=== PATIENT | female | born 1935 | race Caucasian/White ===

== ENCOUNTER → 2017-09-09 | Day surgery (SDC) | payer OTHER ==
--- NOTE | 2017-09-10 14:37 | PATH ---
Cytology Non-Gynecological Report Patient Name: NICOLETTE DENNIS [facility]. Rec. #: [id number] /Age/Gender: 1935 (Age: 82) / F Account: [id number] Location: RADIOLOGY Taken: 09/09/2017 Received: 09/09/2017 Reported: 09/10/2017 Physicians: Keena Esteban M.D. Specimen(s) Received THYROID FNA RIGHT ISTHMUS Clinical History Right isthmus nodule, 3.47 x 3.17 x 1.96 cm Final Diagnosis THYROID, ISTHMUS, RIGHT, FINE NEEDLE ASPIRATION: SATISFACTORY FOR EVALUATION. BETHES[place] CLASS II: BENIGN. CYTOLOGIC FINDINGS ARE CONSISTENT WITH A BENIGN FOLLICULAR NODULE. SMALL FOLLICULAR CELLS AND COLLOID PRESENT. Electronically Signed Nicolette Martinez M.D. Gross Description Received are eight direct smears, four of which are air-dried and Diff-Quik stained, and four of which are alcohol fixed and Pap stained. Also received is 20 ml of bloody formalin from which one cellblock is prepared. Received is a 1.5 ml ThyroSeq tube.
== END | disposition home or self-care (01) ==
LOC: JRADIR 09:40
PROVIDERS: ATTEND Surgery
PROC: 0G9H3ZX Drainage of Right Thyroid Gland Lobe, Percutaneous Approach, Diagnostic (ICD-10-PCS; principal; 2017-09-09)
DX: E04.1 Nontoxic single thyroid nodule (principal)
CPT/HCPCS: 76942; 88173; 88305-TC

== ENCOUNTER 2021-06-07 19:04 | Inpatient (IN) | payer OTHER ==
[2021-06-07] MEDS ORDERED: FAMOTIDINE 20 MG/50 ML IVPB 20 MG/50 ML MG IVPB ONE ×2 (20:27→20:36)
[2021-06-07] MEDS ORDERED: ONDANSETRON 4 MG/2 ML VIAL IVPUSH ONE (20:27)
[2021-06-07] MEDS ORDERED: ONDANSETRON 4 MG/2 ML VIAL ONE (20:36)
[2021-06-07 21:05] LABS: BASO % 0.1 % (0-2.0); EOS % 0.9 % (0-4.5); HEMATOCRIT 37.6 % (32.4-45.2); HEMOGLOBIN 12.7 GM/dL (10.7-15.3); LYMPH % 14.8 % (8-40); MCH 30.2 pg (25.7-33.7); MCHC 33.8 g/dl (32.0-36.0); MEAN CELL VOLUME 89.3 fl (80-96); MEAN PLT VOLUME 8.1 fl (7.5-11.1); MONO % 8.1 % (3.8-10.2); NEUT % 76.1 % (42.8-82.8); PLATELET COUNT 146 10^3/uL (134-434); RBC 4.22 M/mm3 (3.60-5.2); RDW 13.4 % (11.6-15.6); WHITE BLOOD COUNT 6.8 K/mm3 (4.0-10.0)
[2021-06-07 21:59] LABS: BLOOD UREA NITROGEN 31.8 mg/dL (7-18); CREATININE 1.2 mg/dL (0.55-1.3)
[2021-06-07 22:00] LABS: ALBUMIN 3.3 g/dl (3.4-5.0); BILIRUBIN,TOTAL 0.7 mg/dL (0.2-1); CALCIUM 9.5 mg/dL (8.5-10.1); TOT PROT 7.2 g/dl (6.4-8.2)
[2021-06-07] MEDS ORDERED: CLINDAMYCIN 600MG PREMIX IVPB 600 MG/50 ML BAG IVPB ONE ×3 (22:21→23:36)
[2021-06-07 22:23] LABS: PH,URINE 5.5 (5.0-8.0); URINE APPEARANCE CLEAR; URINE BILIRUBIN NEGATIVE (NEGATIVE); URINE COLOR YELLOW; URINE GLUCOSE (UA) NEGATIVE (NEGATIVE); URINE KETONE NEGATIVE (NEGATIVE); URINE LEUK ESTERASE NEGATIVE (NEGATIVE); URINE NITRITE NEGATIVE (NEGATIVE); URINE PROTEIN NEGATIVE (NEGATIVE); URINE UROBILINOGEN 0.2 mg/dL (0.2-1.0)
[2021-06-07] MEDS ORDERED: diphenhydrAMINE HCL 25 MG CAPSULE (FP) PO PRN (23:39)
[2021-06-07] MEDS ORDERED: POLYETHYLENE GLYCOL (HEALTHYLAX) 3350 17 GM PACKET PO PRN (23:39)
[2021-06-07] MEDS ORDERED: ACETAMINOPHEN 325 MG TABLET (FP) PO PRN (23:39)
[2021-06-08] MEDS ORDERED: ONDANSETRON 4 MG/2 ML VIAL IVPUSH PRN (03:00)
[2021-06-08 04:09] VITALS: BMI 34.9
[2021-06-08] MEDS: CLINDAMYCIN 600MG PREMIX IVPB 600 MG/50 ML BAG IVPB SCH ×2 (07:48→12:08)
[2021-06-08] MEDS: ENOXAPARIN NA (PORCINE) 40 MG/0.4 ML DISP.SYRIN SQ SCH (09:05)
[2021-06-08] MEDS: FAMOTIDINE 20 MG TABLET PO SCH (09:05)
[2021-06-08] MEDS: ASPIRIN 81 MG CHEWABLE TABLETS PO SCH (09:05)
[2021-06-08] MEDS: LOSARTAN POTASSIUM 50 MG TABLET PO SCH (09:06)
[2021-06-08 09:10] LABS: BASO % 0.3 % (0-2.0); EOS % 1.3 % (0-4.5); HEMATOCRIT 38.2 % (32.4-45.2); HEMOGLOBIN 12.5 GM/dL (10.7-15.3); LYMPH % 20.8 % (8-40); MCH 29.3 pg (25.7-33.7); MCHC 32.7 g/dl (32.0-36.0); MEAN CELL VOLUME 89.7 fl (80-96); MEAN PLT VOLUME 8.5 fl (7.5-11.1); NEUT % 68.6 % (42.8-82.8); PLATELET COUNT 169 10^3/uL (134-434); RBC 4.26 M/mm3 (3.60-5.2); RDW 13.3 % (11.6-15.6); WHITE BLOOD COUNT 5.9 K/mm3 (4.0-10.0)
[2021-06-08 09:19] LABS: INR 1.12 (0.83-1.09); PROTHROMBIN TIME (PATIENT) 12.9 SEC (9.7-13.0)
[2021-06-08 09:22] LABS: ACTIVATED PTT 26.6 SECONDS (25.2-36.5)
[2021-06-08 09:41] LABS: BLOOD UREA NITROGEN 28.3 mg/dL (7-18); CALCIUM 9.4 mg/dL (8.5-10.1); MAGNESIUM 2.2 mg/dL (1.8-2.4)
[2021-06-08 09:47] LABS: CREATININE 1.1 mg/dL (0.55-1.3)
[2021-06-08] MEDS: CEFAZOLIN 1 GM in DEXTROSE 5%-WATER - 1 GM/50 ML IVPB IVPB SCH ×2 (13:07→17:12)
[2021-06-08] MEDS: valACYclovir HCL 500 MG TABLET (FP) PO SCH ×2 (13:07→22:13)
[2021-06-08] MEDS ORDERED: ceFAZolin SODIUM 1 GM VIAL ONE ×2 (13:24→16:45)
[2021-06-08] MEDS ORDERED: DEXTROSE 5%-WATER - 50 ML IVPB ONE (13:25)
[2021-06-08] MEDS: VANCOMYCIN/WATER FOR INJ (PEG) 1,000 MG/200 ML BAG IVPB SCH (13:27)
[2021-06-09] MEDS ORDERED: ceFAZolin SODIUM 1 GM VIAL ONE ×3 (01:28→17:32)
[2021-06-09] MEDS ORDERED: DEXTROSE 5%-WATER - 50 ML IVPB ONE ×3 (01:28→17:32)
[2021-06-09] MEDS: CEFAZOLIN 1 GM in DEXTROSE 5%-WATER - 1 GM/50 ML IVPB IVPB SCH ×3 (01:31→18:53)
[2021-06-09] MEDS: LOSARTAN POTASSIUM 50 MG TABLET PO SCH (10:00)
[2021-06-09] MEDS: valACYclovir HCL 500 MG TABLET (FP) PO SCH ×2 (10:01→21:26)
[2021-06-09] MEDS: ASPIRIN 81 MG CHEWABLE TABLETS PO SCH (10:01)
[2021-06-09] MEDS: ENOXAPARIN NA (PORCINE) 40 MG/0.4 ML DISP.SYRIN SQ SCH (10:01)
[2021-06-09] MEDS: FAMOTIDINE 20 MG TABLET PO SCH (10:01)
[2021-06-09] MEDS: VANCOMYCIN/WATER FOR INJ (PEG) 1,000 MG/200 ML BAG IVPB SCH (12:28)
[2021-06-10] MEDS ORDERED: DEXTROSE 5%-WATER - 50 ML IVPB ONE ×3 (02:06→17:15)
[2021-06-10] MEDS ORDERED: ceFAZolin SODIUM 1 GM VIAL ONE ×3 (02:06→17:15)
[2021-06-10] MEDS: CEFAZOLIN 1 GM in DEXTROSE 5%-WATER - 1 GM/50 ML IVPB IVPB SCH ×3 (02:26→18:47)
[2021-06-10] MEDS: valACYclovir HCL 500 MG TABLET (FP) PO SCH (09:29)
[2021-06-10] MEDS: FAMOTIDINE 20 MG TABLET PO SCH (09:29)
[2021-06-10] MEDS: ASPIRIN 81 MG CHEWABLE TABLETS PO SCH (09:29)
[2021-06-10] MEDS: ENOXAPARIN NA (PORCINE) 40 MG/0.4 ML DISP.SYRIN SQ SCH (09:29)
[2021-06-10] MEDS: LOSARTAN POTASSIUM 50 MG TABLET PO SCH (09:29)
[2021-06-10] MEDS: POLYETHYLENE GLYCOL (HEALTHYLAX) 3350 17 GM PACKET PO SCH (11:27)
[2021-06-10] MEDS: VANCOMYCIN/WATER FOR INJ (PEG) 1,000 MG/200 ML BAG IVPB SCH (13:32)
[2021-06-10] MEDS: DOCUSATE SODIUM 100 MG CAPSULE (FP) PO SCH ×2 (13:32→21:31)
[2021-06-11] MEDS ORDERED: ceFAZolin SODIUM 1 GM VIAL ONE ×2 (02:17→09:26)
[2021-06-11] MEDS ORDERED: DEXTROSE 5%-WATER - 50 ML IVPB ONE ×2 (02:17→09:26)
[2021-06-11] MEDS: CEFAZOLIN 1 GM in DEXTROSE 5%-WATER - 1 GM/50 ML IVPB IVPB SCH ×2 (02:26→09:32)
[2021-06-11] MEDS: DOCUSATE SODIUM 100 MG CAPSULE (FP) PO SCH (05:11)
[2021-06-11 08:59] LABS: HEMATOCRIT 36.1 % (32.4-45.2); MCH 29.7 pg (25.7-33.7); MCHC 33.2 g/dl (32.0-36.0); MEAN CELL VOLUME 89.3 fl (80-96); MEAN PLT VOLUME 8.2 fl (7.5-11.1); PLATELET COUNT 195 10^3/uL (134-434); RBC 4.04 M/mm3 (3.60-5.2); RDW 13.2 % (11.6-15.6); WHITE BLOOD COUNT 6.1 K/mm3 (4.0-10.0)
[2021-06-11 09:29] LABS: ALBUMIN 3.3 g/dl (3.4-5.0); BLOOD UREA NITROGEN 26.7 mg/dL (7-18); CALCIUM 10.2 mg/dL (8.5-10.1)
[2021-06-11] MEDS: ASPIRIN 81 MG CHEWABLE TABLETS PO SCH (09:31)
[2021-06-11] MEDS: ENOXAPARIN NA (PORCINE) 40 MG/0.4 ML DISP.SYRIN SQ SCH (09:31)
[2021-06-11] MEDS: LOSARTAN POTASSIUM 50 MG TABLET PO SCH (09:31)
[2021-06-11] MEDS: FAMOTIDINE 20 MG TABLET PO SCH (09:32)
[2021-06-11] MEDS: POLYETHYLENE GLYCOL (HEALTHYLAX) 3350 17 GM PACKET PO SCH (09:32)
[2021-06-11 09:34] LABS: BILIRUBIN,TOTAL 0.4 mg/dL (0.2-1); TOT PROT 6.9 g/dl (6.4-8.2)
[2021-06-11 09:36] LABS: ANISOCYTOSIS 0; HELMET CELLS 0; HOWELL-JOLLY BODIES 0; MACROCYTOSIS 0; OVALOCYTE 0; ROULEAU 0; SICKELED CELLS 0; TARGET CELLS 0; TEAR DROP CELLS 0; TOXIC GRANULATION 0
[2021-06-11 13:12] VITALS: BP 134/60; PULSE 78; TEMP 98.9
== END 2021-06-11 14:07 | disposition home or self-care (01) | DRG 603 ==
LOC: JER 19:04 → JERBED 22:29 → J6S 06-08 03:04
PROVIDERS: ADMIT Hospitalist; ATTEND Internal Medicine
DX: L03.312 Cellulitis of back [any part except buttock and flank] (principal); L03.311 Cellulitis of abdominal wall; N61.0 Mastitis without abscess; K21.9 Gastro-esophageal reflux disease without esophagitis; I10 Essential (primary) hypertension; Z85.3 Personal history of malignant neoplasm of breast; E78.5 Hyperlipidemia, unspecified; R73.9 Hyperglycemia, unspecified; B02.9 Zoster without complications; R11.14 Bilious vomiting
CPT/HCPCS: 36415; 71045-TC-FY; 76705-TC; 80048; 80053; 81003; 83690; 83735; 85025; 85610; 85730; 87040; 87086; 99285-25; C9803-CS; U0003; U0005

== ENCOUNTER 2021-12-29 13:00 | Inpatient (IN) | payer OTHER ==
[2021-12-29 16:27] LABS: BASO % 0.3 % (0-2.0); EOS % 1.5 % (0-4.5); HEMATOCRIT 38.3 % (32.4-45.2); HEMOGLOBIN 12.7 GM/dL (10.7-15.3); LYMPH % 29.5 % (8-40); MCH 29.6 pg (25.7-33.7); MCHC 33.1 g/dl (32.0-36.0); MEAN CELL VOLUME 89.3 fl (80-96); MEAN PLT VOLUME 8.6 fl (7.5-11.1); MONO % 8.4 % (3.8-10.2); NEUT % 60.3 % (42.8-82.8); PLATELET COUNT 194 10^3/uL (134-434); RBC 4.29 M/mm3 (3.60-5.2)
[2021-12-29 16:36] LABS: CHLORIDE 108 mmol/L (98-107); SODIUM 141 mmol/L (136-145)
[2021-12-29 16:38] LABS: CALCIUM 10.1 mg/dL (8.5-10.1)
[2021-12-29 16:39] LABS: ALBUMIN 3.6 g/dl (3.4-5.0); ANION GAP 8 MMOL/L (8-16); BLOOD UREA NITROGEN 36.8 mg/dL (7-18); CO2 25 mmol/L (21-32); GLUCOSE,RANDOM 128 mg/dL (74-106)
[2021-12-29 16:42] LABS: CREATININE 1.1 mg/dL (0.55-1.3); PHOSPHOROUS 3.5 mg/dL (2.5-4.9); SGOT/AST 21 U/L (15-37); SGPT/ALT 27 U/L (13-61)
[2021-12-29 16:43] LABS: BILIRUBIN,TOTAL 0.5 mg/dL (0.2-1); TOT PROT 7.1 g/dl (6.4-8.2)
[2021-12-29 16:45] LABS: ALK PHOS 54 U/L (45-117)
[2021-12-29] MEDS ORDERED: ASPIRIN 81 MG CHEWABLE TABLETS PO ONE (16:56)
[2021-12-29] MEDS ORDERED: ALBUTEROL SO4 2.5/IPRATROPIUM 0.5 INH SOL 3 ML VIAL.NEB. NEB ONE (17:04)
[2021-12-29 22:38] VITALS: BMI 34.1
[2021-12-30 08:40] LABS: BASO % 0.3 % (0-2.0); EOS % 2.3 % (0-4.5); HEMATOCRIT 36.6 % (32.4-45.2); HEMOGLOBIN 12.4 GM/dL (10.7-15.3); LYMPH % 34.3 % (8-40); MCH 30.3 pg (25.7-33.7); MEAN CELL VOLUME 89.1 fl (80-96); MEAN PLT VOLUME 8.1 fl (7.5-11.1); MONO % 9.4 % (3.8-10.2); NEUT % 53.7 % (42.8-82.8); PLATELET COUNT 175 10^3/uL (134-434); RDW 13.1 % (11.6-15.6); WHITE BLOOD COUNT 5.5 K/mm3 (4.0-10.0)
[2021-12-30 09:02] LABS: ALBUMIN 3.5 g/dl (3.4-5.0); BLOOD UREA NITROGEN 43.6 mg/dL (7-18); CALCIUM 10.1 mg/dL (8.5-10.1); MAGNESIUM 1.9 mg/dL (1.8-2.4)
[2021-12-30 09:05] LABS: CREATININE 1.3 mg/dL (0.55-1.3)
[2021-12-30 09:07] LABS: BILIRUBIN,TOTAL 0.6 mg/dL (0.2-1); TOT PROT 6.9 g/dl (6.4-8.2)
[2021-12-30] MEDS ORDERED: ASPIRIN 81 MG CHEWABLE TABLETS PO SCH (10:00)
[2021-12-30] MEDS: FAMOTIDINE 20 MG TABLET PO SCH (10:03)
[2021-12-30] MEDS: APIXABAN 5 MG TABLET PO SCH ×2 (11:46→21:45)
[2021-12-30 20:24] VITALS: RESP 16
[2021-12-30] MEDS ORDERED: ATORVASTATIN CA 10 MG TABLET (FP) PO SCH (22:00)
[2021-12-31] MEDS: APIXABAN 5 MG TABLET PO SCH (10:02)
[2021-12-31] MEDS: FAMOTIDINE 20 MG TABLET PO SCH (10:02)
[2021-12-31 11:33] VITALS: BP 125/59; PULSE 63; TEMP 97.8
== END 2021-12-31 15:23 | disposition home or self-care (01) | DRG 309 ==
LOC: JER 13:00 → JERBED 17:11 → J4W 21:48
PROVIDERS: ADMIT Internal Medicine; ATTEND Internal Medicine
DX: I48.91 Unspecified atrial fibrillation (principal); I24.8 Other forms of acute ischemic heart disease; I10 Essential (primary) hypertension; K21.9 Gastro-esophageal reflux disease without esophagitis; E78.5 Hyperlipidemia, unspecified; R00.2 Palpitations; E66.9 Obesity, unspecified; Z68.34 Body mass index [BMI] 34.0-34.9, adult
CPT/HCPCS: 36415; 71046-TC-FY; 80053; 83735; 84100; 84443; 84484; 85025; 93005; 93010; 93306-TC; 97116-GP; 97161-GP; 99285-25; C9803-CS; U0003; U0005